=== PATIENT | female | born 1955 | race Caucasian/White ===

== ENCOUNTER → 2020-10-15 | Outpatient (CLI) | payer OTHER ==
[~2020-10-15] MED LIST: ALENDRONATE SOD70 MG PO; ASPIR 8181 MG PO; ATENOLOL 25 MG25 M1 PO; ELIQUIS5 MG PO; ESCITALOPRAM OX10 MG PO; FLECAINIDE ACET50 M2 PO; NAPROSYN500 MG PO; NAPROXEN375 MG PO; PREMPRO 0.3 MG1 EACH PO; PRILOSEC OTC20 MG PO; TENORMIN50 MG PO; TYLENOL325 M1 PO; VITAMIN D3250 MCG PO; ZYRTEC10 M4 PO
== END ==
LOC: LAB 08:26
PROVIDERS: ATTEND Specialist
DX: Z01.812 Encounter for preprocedural laboratory examination (principal); Z20.828 Contact with and (suspected) exposure to other viral communicable diseases

== ENCOUNTER → 2020-10-17 | Outpatient (CLI) | payer OTHER ==
[~2020-10-17] VITALS: Ht 160 cm; Wt 115.7 kg
--- NOTE | 2020-10-17 17:27 | P ---
[facility] [place] [address] PROCEDURE REPORT Name: MIGUELANGEL RUSH Room #: [id number] Admission: 10/17/20 Attend Phys: Santos Watson Discharge: Date of : 57 Report #: [id number] THIS REPORT FOR: cc: Mahesh Olson MD,Mahesh Marinelli,Santos Regan MD ~ CC: Santos Olson DATE OF SERVICE: 10/17/2020 PROCEDURE PERFORMED: Colonoscopy. HISTORY OF PRESENT ILLNESS: The patient is a 65-year-old female who presents today for routine screening colonoscopy. Denies any symptoms. No family history of colon cancer. DESCRIPTION OF PROCEDURE: The risks and benefits of the procedure were explained to the patient, those risks including but not limited to bleeding, perforation and the risk of sedation. She understood these risks and gave informed consent. Sedation was given using propofol per anesthesia. Next, a digital rectal exam was initially performed, which was normal. Next, using a standard Olympus colonoscope, the scope was placed in the patient's anus and advanced under direct vision to the cecum. The overall prep was excellent. The cecum and ileocecal valve were normal in appearance. The ascending, transverse, descending and sigmoid colon were all normal. The rectal mucosa was normal. On retroflexion, no abnormalities were noted. The scope was then withdrawn and the procedure terminated. The patient tolerated the procedure well. IMPRESSION: Normal colonoscopy. RECOMMENDATIONS: Repeat colonoscopy in 10 years. Thank you for allowing me to participate in her care. <ELECTRONICALLY SIGNED> By: Santos Marinelli MD 10/17/20 1727 [id number] Santos Marinelli MD /nt
== END | disposition home or self-care (01) ==
LOC: GI 07:11
PROVIDERS: ATTEND Specialist
DX: Z12.11 Encounter for screening for malignant neoplasm of colon (principal); K21.9 Gastro-esophageal reflux disease without esophagitis; I48.91 Unspecified atrial fibrillation; G47.30 Sleep apnea, unspecified; Z98.890 Other specified postprocedural states; Z79.899 Other long term (current) drug therapy; Z90.49 Acquired absence of other specified parts of digestive tract; Z79.01 Long term (current) use of anticoagulants; Z87.19 Personal history of other diseases of the digestive system
CPT/HCPCS: 62110; 62900